=== PATIENT | male | born 1990 | race Caucasian/White ===

== ENCOUNTER 2019-04-26 10:40 | Day surgery (SDC) | payer BC ==
[2019-04-23 11:34] VITALS: BMI 23.6
[2019-04-26] MEDS ORDERED: Midazolam HCl 2 mg/2 ml Vial ONE (12:03)
[2019-04-26] MEDS ORDERED: Fentanyl 100 MCG/2 ML VIAL ONE ×2 (12:03→16:20)
--- NOTE | 2019-04-26 16:31 | RAD ---
Left clavicle 2 views intraoperative fluoroscopy HISTORY: Clavicle fracture. FINDINGS: Intraoperative fluoroscopy was provided for internal fixation as performed by Dr. Hernandez . Spot fluoroscopic images of the distal clavicle shows superior compression plate and multiple screws transfixing the distal clavicle.. Alignment is anatomic. Fluoroscopy time 24 seconds
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
== END 2019-04-26 18:50 | disposition home or self-care (01) ==
LOC: SDC 10:40
PROVIDERS: ATTEND Orthopaedic Surgery
PROC: 0PSB04Z Reposition Left Clavicle with Internal Fixation Device, Open Approach (ICD-10-PCS; principal; 2019-04-26)
DX: S42.032A Displaced fracture of lateral end of left clavicle, initial encounter for closed fracture (principal); V19.9XXA Pedal cyclist (driver) (passenger) injured in unspecified traffic accident, initial encounter
CPT/HCPCS: 76000; J0690; J2250; J3010

== ENCOUNTER 2020-09-11 08:06 | Outpatient (CLI) | payer BC | END 2020-09-11 08:07 | disposition home or self-care (01) | LOC: BICMRI 08:06 | PROVIDERS: ATTEND Orthopaedic Surgery | DX: M76.899 Other specified enthesopathies of unspecified lower limb, excluding foot (principal) ==